=== PATIENT | male | born 1975 | race African-American/Black ===

== ENCOUNTER 2022-09-07 13:20 | Emergency (ER) | payer OTHER ==
[~2022-09-07] VITALS: Ht 172.7 cm; Wt 96.0 kg
[2022-09-07 13:44] VITALS: BP 147/104
== END 2022-09-07 13:45 | disposition home or self-care (01) ==
LOC: ER 13:20
DX: E11.65 Type 2 diabetes mellitus with hyperglycemia (principal)
CPT/HCPCS: 82962; 99283